=== PATIENT | male | born 1975 | race African-American/Black ===

== ENCOUNTER 2018-04-18 13:44 | Emergency (ER) | payer MEDICAID ==
[~2018-04-18] VITALS: Ht 188 cm; Wt 97.0 kg
[~2018-04-18 13:44] MED LIST: BENA20TA10 PO; GLIP10TA10 PO; METF-416 PO
[2018-04-18] MEDS ORDERED: amlodipine (14:58)
[2018-04-18 14:59] VITALS: BP 116/75
== END 2018-04-18 20:32 | disposition left against medical advice (07) ==
LOC: ER 14:14
DX: R52 Pain, unspecified (principal); Z53.21 Procedure and treatment not carried out due to patient leaving prior to being seen by health care provider